=== PATIENT | female | born 1935 | race Caucasian/White ===

== ENCOUNTER 2018-06-26 06:03 | Inpatient (IN) | payer BC ==
[2018-06-15 09:18] LABS: ABSOLUTE EOSINOPHILS 0.1 thou/uL (0.0-0.7); ABSOLUTE LYMPHOCYTES 0.8 thou/uL (0.8-5.3); ABSOLUTE MONOCYTES 0.3 thou/uL (0.0-1.2); ABSOLUTE NEUTROPHILS 2.3 thou/uL (1.6-8.1); BASOPHILS 0.8 %; EOSINOPHILS 3.6 %; HEMATOCRIT 41.2 % (37.0-47.0); LYMPHOCYTES 22.6 %; MCH 32.2 pg (26.0-34.0); MCHC 33.9 g/dL (28.0-37.0); MCV 95.1 fL (80.0-100.0); MONOCYTES 8.6 %; MPV 9.2 fl. (7.2-11.1); NUCLEATED RBCS 0 /100WBC; PLATELET COUNT* 101 thou/uL (150-400); POLYS 64.4 %; RBC 4.34 mil/uL (4.20-5.00); WBC 3.6 thou/uL (4.0-11.0)
[2018-06-15 09:24] LABS: APTT 28.7 Seconds (25.0-31.3); INR 1.1
[2018-06-15 10:11] LABS: ALBUMIN 3.5 g/dL (3.4-5.0); CALCIUM 9.3 mg/dL (8.5-10.1); CREATININE 0.9 mg/dL (0.6-1.3); POTASSIUM 3.9 mmol/L (3.5-5.1); TOTAL BILIRUBIN 0.6 mg/dL (<0.1-1.0); TOTAL PROTEIN 6.7 g/dL (6.4-8.2)
[2018-06-15 11:14] LABS: ESR (SEDRATE) 14 mm/hr (0-30)
--- NOTE | 2018-06-15 16:41 | EKG ---
[place] [address] ELECTROCARDIOGRAM REPORT Name: ROMELIA CANTOR Room: [facility]#: [id number] Admission: Attend Phys: Ghazala Persaud Discharge: Date of : 37 Report #: [id number] THIS REPORT FOR: //name// [facility] Test Date: 2018-06-15 Test Time: 09:34:17 Pat Name: ROMELIA CANTOR Department: Room: Gender: F Color Dipper: : 1935 Requested By: Johnathan Corcoran Order Number: [id number] MD: Owen Rutherford Measurements Intervals [place] Rate: 66 P: 39 NE: 184 QRS: 66 QRSD: 94 T: 24 QT: 409 QTc: 429 Interpretive Statements Sinus rhythm Low voltage, precordial leads No previous ECG available for comparison Electronically Signed On 06-15-2018 16:41:[address] ADMINISTRATOR by Owen Rutherford [email or web address] <ELECTRONICALLY SIGNED> By: Owen Rutherford MD, [facility] 06/15/18 1641 0934 0934 Owen Rutherford MD, FACC /EPI
[2018-06-15 21:13] LABS: GLYCOHEMOGLOBIN (HGB A1C) 6.2 % (4.8-5.6)
[~2018-06-26] VITALS: Ht 147.3 cm; Wt 79.9 kg
[~2018-06-26 06:03] MED LIST: ADULT LOW DOSE81 MG PO; ALLOPURINOL 10100 M1 PO; AMILORIDE HCL-1 EACH PO; ASPIR-TRIN325 MG PO; CARVEDILOL12.5 MG PO; CELEXA20 MG PO; CENTRUM SILVER1 EAC4 PO; COLACE100 MG PO; HYDROCODONE-AP1 EAC6 PO; LEVOTHYROXINE0.05 MG PO; MILK OF MA400 MG/5 M PO; OMEGA-31000 M1 PO; OMEPRAZOLE20 M2 PO; OXYCODONE HCL 55 MG PO; POTASSIUM20 PO; TRAMADOL 50 MG50 MG PO; TRAZODONE HCL50 MG PO; VITAMIN D1000 UNI1 PO; XARELTO10 MG PO; ZYRTEC10 M2 PO
[2018-06-26] MEDS ORDERED: FLAGYL 250 MG250 MG PO (06:20)
[2018-06-26 06:51] VITALS: BP 123/61
[2018-06-26 11:08] VITALS: BP 124/62
--- NOTE | 2018-06-26 11:30 | NUR ---
PATIENT TRANSFERRED FROM PACU TO ROOM 111. ALERT AND ORIENTED. OXYIR FOR PAIN. LUNCH PROVIDED. TOELRATING LIQUIDS. DRESSING TO RIGHT KNEE C/D/I. TEDS AND SCD'S IN PLACE. POLAR CARE IN USE. IVF INFUSING ORDERED. CAPNO WITH SAT 99% ON RA. ORIENTED TO ROOM AND BED CONTROLS. DAUGHTER AT BEDSIDE. BED ALARM SET. CALL LIGHT WITHIN REACH. WILL CONTINUE TO MONITOR.
[2018-06-26 16:00] VITALS: BP 101/47
--- NOTE | 2018-06-26 16:26 | NUR ---
PATIENT REMAINS ALERT AND ORIENTED. PAIN CONTROLLED WITH OXYIR. UP TO COMMODE WITH ASSIST OF 1,GAITBELT, AND WALKER. VOIDED PER BSC. CURRENTLY UP IN CHAIR WORKING WITH PT. DRESSING TO KNEE C/D/I. CPM TO START TONIGHT. SCD'S AND TEDS IN PLACE. RA SAT 99%. CAPNO. IVF INFUSING ORDERED. DAUGHTER AT BEDSIDE. CALL LIGHT WITHIN REACH. WILL CONTINUE TO MONITOR.
[2018-06-26 19:15] VITALS: BP 139/66
--- NOTE | 2018-06-26 23:36 | NUR ---
RECIEVED REPORT AND ASSUMED CARE OF PT AT 1915. PT UP IN RECLEINER AT THAT TIME.PT IN STEPHANY HOSE,SCD'S AND POLAR PACK TO RIGHT KNEE. PT ABLE TO USE BEDSIDE COMMODE WITH WALKER AND ASSIST X1. PT GIVEN PRN PAIN MEDS AT HS. PT PLACED IN CPM MACHINE PER ORDERS. CALL LIGHT IN REACH. PT USING APPROPRIATELY.
[2018-06-27 00:53] VITALS: BP 152/73
[2018-06-27 04:18] VITALS: BP 149/91
[2018-06-27 05:04] LABS: HEMATOCRIT 36.9 % (37.0-47.0); HEMOGLOBIN 12.4 gm/dL (12.0-15.0); MCH 31.8 pg (26.0-34.0); MCHC 33.5 g/dL (28.0-37.0); MCV 94.9 fL (80.0-100.0); NUCLEATED RBCS 0 /100WBC; PLATELET COUNT* 85 thou/uL (150-400); RBC 3.89 mil/uL (4.20-5.00); RDW-CV 15.3 % (10.5-14.5); WBC 6.5 thou/uL (4.0-11.0)
[2018-06-27 05:42] LABS: ALBUMIN 3.2 g/dL (3.4-5.0); CALCIUM 9.1 mg/dL (8.5-10.1); CREATININE 1.1 mg/dL (0.6-1.3); POTASSIUM 3.9 mmol/L (3.5-5.1); TOTAL BILIRUBIN 0.5 mg/dL (<0.1-1.0); TOTAL PROTEIN 6.3 g/dL (6.4-8.2)
[2018-06-27 06:04] LABS: ABSOLUTE LYMPHOCYTES 0.2 thou/uL (0.8-5.3); ABSOLUTE MONOCYTES 0.1 thou/uL (0.0-1.2); ABSOLUTE NEUTROPHILS 6.2 thou/uL (1.6-8.1); PLATELET ESTIMATE DECREASED
--- NOTE | 2018-06-27 06:09 | NUR ---
PT PROGRESSING TOWARD GOALS DURING SHIFT. PT UP TO BEDSIDE COMMODE WITH ASSIST X1. PT ON CPM LAST NIGHT ORDERED. POLAR CARE, STEPHANY HOSE AND FOOT PUMPS IN PLACE. VITAL SIGNS WITHIN NORMAL LIMITS. NO ACUTE CHANGES DURING SHIFT. WILL CONTINUE PLAN OF CARE.
[2018-06-27 08:00] VITALS: BP 136/76
[2018-06-27 15:45] VITALS: BP 117/60
--- NOTE | 2018-06-27 16:09 | NUR ---
PATIENT REMAINS ALERT AND ORIENTED. PAIN CONTROLLED. DRESSING TO RIGHT KNEE C/D/I. POLAR CARE IN PLACE. WORKED WITH PT/OT. TOLERATING MEALS. USED CPM X2 THIS SHIFT. TEDS/SCD'S IN PLACE. TOLERATING MEALS. VOIDING PER BSC. BM LAST NIGHT. AMBULATES AND TRANSFERS WITH ASSIST OF 1,GB, AND WALKER. BED/CHAIR ALARM IN USE. DAUGHTER AT BEDSIDE. CALL LIGHT WITHIN REACH. WILL CONTINUE TO MONITOR.
[2018-06-27 21:00] VITALS: BP 140/64
--- NOTE | 2018-06-27 23:01 | NUR ---
INITAL ASSESMENT COMPLETED AT 2100. PT TAKEN OFF CPM AT THAT TIME. PT ABLE TO TRANSFER FROM BED TO COMMODE WITH ASSIST X1. PT GIVEN PRN NORCO WITH HS MEDS. PT RESTING QUIETLY, CALL LIGHT IN REACH.
[2018-06-28 04:23] LABS: HEMATOCRIT 33.9 % (37.0-47.0); HEMOGLOBIN 11.4 gm/dL (12.0-15.0)
[2018-06-28 08:00] VITALS: BP 132/64
[2018-06-28] MEDS ORDERED: ELIQUIS2.5 MG PO (09:50)
[2018-06-28] MEDS ORDERED: OXYCODONE HCL 55 MG PO (09:50)
[2018-06-28 09:51] VITALS: BP 132/64
[2018-06-28] MEDS ORDERED: ASPIRIN325 PO (10:00)
[2018-06-28] MEDS ORDERED: VENTOLIN HFA 1818 GM INH (11:57)
[2018-06-28] MEDS ORDERED: SENNA PLUS TAB1 EACH PO (11:58)
[2018-06-28] MEDS ORDERED: PREDNISONE 20 M20 MG PO (11:58)
[2018-06-28] MEDS ORDERED: IPRAT-ALBUT 0.5-3 ML INH (11:59)
--- NOTE | 2018-06-28 12:37 | NUR ---
PURCHASING OFFICER SPOKE TO HUMBLE WITH [employer] TO DISUCSS INSURANCE AUTH FOR THE PATIENT. HUMBLE INFORMS THAT SHE HAS NOT RECEIVED INSURANCE AUTH YET, BUT WILL RETURN CALL WHEN AUTH IS RECEIVED. CM WILL REMAIN AVIALABLE TO ASSIST AND FOLLOW NEEDED.
--- NOTE | 2018-06-28 16:10 | NUR ---
PATIENT REMAINS ALERT AND ORIENTED. IV SALINE LOCKED. PARTICIPATING WITH PT/OT. DRESSING TO RIGHT KNEE C/D/I. TEDS/SCDS IN PLACE. CPM USED X2 THIS SHIFT. BM THIS MORNING. VOIDING WELL PER COMMODE. VSS. RA SAT 98%. DAUGHTER WENT BACK TO [place]. PATIENT WILL TRANSFER TO [facility] ONCE INSURANCE AUTH IS RECEIVED. BED/CHAIR ALARM IN USE. CALL LIGHT WITHIN REACH. WILL CONTINUE TO MONITOR.
[2018-06-28 20:00] VITALS: BP 131/62
[2018-06-29 00:28] VITALS: BP 142/77
[2018-06-29 04:18] VITALS: BP 124/63
--- NOTE | 2018-06-29 04:55 | NUR ---
ASSUMED CARE OF PT AT 1900 PT ALERT AND ORIENTED X4 VS AND ASSESSMENT STABLE.PT HAD POSITIVE CMS CHECKS TO RLE. PT DENYING PAIN AND DECLINING PAIN MEDS. PT SLEPT THROUGH THE NIGHT PT DID TAKE PAIN MEDS ONCE. WILL CONTINUE PLAN OF CARE.
[2018-06-29 08:00] VITALS: BP 125/59
[2018-06-29 10:36] VITALS: BP 132/64
--- NOTE | 2018-06-29 11:02 | NUR ---
RAT BREEDER SPOKE HUMBLE WITH [facility] AND SHE INFORMS THAT THE FACILTY HAS RECIEVED INSURANCE AUTH FOR SKILLED, AND WILL PROVIDE TRANSPORT FOR THE PATIENT TODAY BETWEEN 1400 AND 1430. D/C MAGISTERIAL DISTRICT JUDGE INFORMED THE PATIENT OF THIS INFO AND SHE IS IN AGREEMENT. D/C MAGISTERIAL DISTRICT JUDGE CONTACTED THE PATIENT'S DTR PER HER REQUEST, AND LEFT A MESSAGE TO RETURN CALL. D/C MAGISTERIAL DISTRICT JUDGE INFORMED THE RN IN-CHARGE OF THE PATIENT OF THE PATIENT'S TIME OF TRANSPORT, AND WHERE TO CALL REPORT. RN IN AGREEMENT. CM WILL REMAIN AVAILABLE TO ASSIST AND FOLLOW NEEDED.
[2018-06-29] MEDS ORDERED: OXYCODONE HCL 55 MG PO (12:20)
[2018-06-29 14:23] VITALS: BP 132/64
--- NOTE | 2018-06-29 14:24 | NUR ---
PT CHART COPIED. PRESCRIPTIONS PLACE IN ENVELOPE. ENVELOPE GIVEN TO TRANSPORTER. PT IV REMOVED AND BELONGINGS GATHERED. PT LEFT VIA WHEELCHAIR WITH NURSING STAFF TO WHEELCHAIR VAN TO [facility]. FALL RISK PRECAUTIONS IN PLACE. HOURLY ROUNDING COMPLETED. WILL CONTINUE TO MONITOR.
--- NOTE | 2018-07-03 09:17 | OP ---
[address] [address] OPERATIVE REPORT Name: ROMELIA CANTOR Room: [address]#: [id number] Admission: 06/26/18 Attend Phys: Ghazala Persaud Discharge: 06/29/18 Date of : 37 Report #: [id number] THIS REPORT FOR: //name// CC: Johnathan Castellanos DATE OF SERVICE: 06/26/2018 PREOPERATIVE DIAGNOSIS: Advanced degenerative joint disease, right knee. POSTOPERATIVE DIAGNOSIS: Advanced degenerative joint disease, right knee. PROCEDURE: Right total knee arthroplasty. SURGEON: Johnathan Corcoran DO. APARTMENT LEASING SPECIALIST: Kayden Landaverde DO. SECOND FISH EGG PACKER: Miguel Ángel Smith DO. ESTIMATED BLOOD LOSS: 100 mL. ORTHOPEDIC IMPLANTS:. Messi total knee arthroplasty system. 1. Size 4 cruciate retaining femur. 2. Size C tibial baseplate. 3. A 12 mm medial congruent polyethylene spacer. 4. A 29 mm 3 peg patella. 5. 2 bags of Biomet bone cement plain. ANESTHESIA: General. COMPLICATIONS: None. DRAINS: None. SPECIMEN REMOVED: None. CONDITION OF PATIENT: Stable to PACU. INDICATIONS FOR PROCEDURE: The patient is a pleasant 83-year-old female, seen in my clinic regarding right knee pain she has had for quite some time. She unfortunately failed conservative treatment including anti-inflammatory medications, steroid injections and activity modification. X-rays were consistent with end-stage degenerative joint disease. Due to failed conservative treatment, I did discuss the potential benefit of right total knee [address] [address] OPERATIVE REPORT Name: ROMELIA CANTOR Room: [address] [place] M.R.#: [id number] Admission: 06/26/18 Attend Phys: Ghazala Persaud Discharge: 06/29/18 Date of : 37 Report #: [id number] arthroplasty. I discussed procedure, risks, benefits, complications, indications in detail with her. Risks discussed include but not limited to infection, neurovascular injury, continued or worsened pain, need for further surgery, DVT, PE, hardware failure, fracture and anesthesia complications. She did express understanding and wished to proceed with surgery. DESCRIPTION OF PROCEDURE: After consent was obtained, the patient was taken to operative suite and placed in supine position on operating room table. She was given benefit of general anesthesia. A well-padded tourniquet was placed over the right upper thigh. Right leg was sterilely prepped and draped in usual fashion. Preoperative timeout was obtained to confirm the correct patient, procedure and operative site. Surgery began with elevation of the tourniquet to 300 mmHg. This was inflated for approximately one hour throughout the procedure. A standard anterior knee midline incision was made. Sharp dissection was taken down to the level of the capsule. A new knife was used and a medial parapatellar arthrotomy was performed. She had a normal appearing joint effusion. Upon entering the knee joint, she had severely eburnated bone throughout all 3 compartments with osteophytes throughout. At this time, femoral drill was used to open the femoral canal. T-handle and extramedullary enedina were placed measuring 5-degree valgus cut. The distal femoral cut was made through the captured block. Attention was then turned to the proximal tibia. External tibial guide was utilized, measuring 10 mm cut off the high lateral side. Proximal tibial cut was made through the captured block. The knee was taken through extension and 10 block was used to ensure adequate resection. The knee was again flexed. AP sizer was placed on the distal femur and this measured a size 4. Two river pilot holes were drilled in 3 degrees of external rotation. The size 4, 4-in-1 cutting block was then pinned in place and the anterior, posterior condylar cuts were made as well as the chamfer cuts. Posterior osteophytes were removed with curved osteotome and rongeur. Proximal tibia was then exposed, this measured a size C. The size C tibial trial was pinned in place with appropriate rotation based off the medial third of the tibial tubercle. The trial femur was placed. The size 10 spacer was placed. Knee was taken through range of motion. She had full flexion/extension with stable varus valgus testing throughout. The patella was then everted. Posterior patellar cut was made using freehand technique. This measured size 29. Three peg holes were drilled, size 29 button was placed. Knee was taken through range of motion. The patella did track well. At this time, the trial femur and spacer were removed. The proximal tibia was opened with a drill and punch. All trial components were then removed. The knee was thoroughly irrigated with pulsatile lavage and dried with a clean lap sponge. Cement was mixed, placed on the final components and an exposed bone. The components were then impacted into place. Excess cement was removed. A size 12 spacer was placed. Knee was taken through extension. Axial compression was applied until the cement hardened. Once the cement hardened, trial reduction [address] [address] OPERATIVE REPORT Name: ROMELIA CANTOR Room: [address] [place] [facility]#: [id number] Admission: 06/26/18 Attend Phys: Palomo MigdaliaGhazala Hayes Discharge: 06/29/18 Date of : 37 Report #: [id number] was performed and a final size 12 spacer was chosen. This was placed on a clean tray and locked in place. Audible click was heard. The knee was again taken through final range of motion. She had full flexion/extension with stable varus and valgus testing and equal flexion and extension gaps and good patellar tracking throughout. Tourniquet was allowed to deflate. Hemostasis was achieved with electrocautery and direct pressure. Ortho cocktail was injected. Capsular tissue was closed with a running Quill suture. Subcutaneous tissue was thoroughly irrigated and then closed with 2-0 Vicryl in inverted interrupted fashion followed by running Monocryl stitch. This covered with Dermabond, which was allowed to dry, Mepilex silver dressing and a pressure dressing. She did tolerate the procedure well without complication. She was taken to recovery room in stable condition. All needle and sponge counts were correct x 2 at the end of the procedure. <ELECTRONICALLY SIGNED> By: Johnathan Corcoran DO 07/03/18 0917 0804 [id number] Corcoran DO /nt
== END 2018-06-29 14:25 | DRG 470 ==
LOC: M.SUR 06:03 → M.ORTHSURG 09:38 → M.SUR 09:48 → M.ORTHSURG 06-29 14:25
PROVIDERS: Family Medicine; Orthopaedic Surgery; ADMIT Internal Medicine
PROC: 0SRC0J9 Replacement of Right Knee Joint with Synthetic Substitute, Cemented, Open Approach (ICD-10-PCS; principal; 2018-06-26)
DX: M17.11 Unilateral primary osteoarthritis, right knee (principal); J45.21 Mild intermittent asthma with (acute) exacerbation; E03.9 Hypothyroidism, unspecified; K21.9 Gastro-esophageal reflux disease without esophagitis; F32.9 Major depressive disorder, single episode, unspecified; I12.9 Hypertensive chronic kidney disease with stage 1 through stage 4 chronic kidney disease, or unspecified chronic kidney disease; M10.9 Gout, unspecified; N18.3 Chronic kidney disease, stage 3 (moderate); N76.0 Acute vaginitis; Z88.1 Allergy status to other antibiotic agents; Z88.8 Allergy status to other drugs, medicaments and biological substances; Z90.49 Acquired absence of other specified parts of digestive tract; Z98.42 Cataract extraction status, left eye; Z98.41 Cataract extraction status, right eye

== ENCOUNTER 2018-08-02 12:59 | Emergency (ER) | payer BC ==
[~2018-08-02] VITALS: Ht 149.9 cm; Wt 77.1 kg
[~2018-08-02 12:59] MED LIST changes: +ASPIRIN325 PO; +ELIQUIS2.5 MG PO; +FLAGYL 250 MG250 MG PO; +IPRAT-ALBUT 0.5-3 ML INH; +PREDNISONE 20 M20 MG PO; +SENNA PLUS TAB1 EACH PO; +VENTOLIN HFA 1818 GM INH
[2018-08-02 13:58] LABS: HEMATOCRIT 35.6 % (37.0-47.0); HEMOGLOBIN 11.8 gm/dL (12.0-15.0); MCH 31.3 pg (26.0-34.0); MCHC 33.2 g/dL (28.0-37.0); MCV 94.4 fL (80.0-100.0); NUCLEATED RBCS 0 /100WBC; PLATELET COUNT* 112 thou/uL (150-400); RBC 3.77 mil/uL (4.20-5.00); RDW-CV 15.8 % (10.5-14.5); WBC 5.5 thou/uL (4.0-11.0)
[2018-08-02 14:23] LABS: ALBUMIN 3.1 g/dL (3.4-5.0); CREATININE 1.3 mg/dL (0.6-1.3); POTASSIUM 4.4 mmol/L (3.5-5.1); TOTAL BILIRUBIN 0.9 mg/dL (<0.1-1.0); TOTAL PROTEIN 5.8 g/dL (6.4-8.2)
[2018-08-02 15:15] LABS: ABSOLUTE BASOPHILS 0.1 thou/uL (0.0-0.2); ABSOLUTE LYMPHOCYTES 0.3 thou/uL (0.8-5.3); ABSOLUTE MONOCYTES 0.4 thou/uL (0.0-1.2); ABSOLUTE NEUTROPHILS 4.7 thou/uL (1.6-8.1); ATYPICAL LYMPHS 2 %
[2018-08-02 15:16] LABS: PLATELET ESTIMATE DECREASED
[2018-08-02 15:18] LABS: ANISOCYTOSIS 2+; MACROCYTES 2+; POIKILOCYTOSIS 1+
[2018-08-02 15:19] LABS: POLYCHROMASIA Occasional
[2018-08-02 15:56] LABS: URINE BILIRUBIN NEGATIVE (Negative); URINE BLOOD NEGATIVE (Negative); URINE CLARITY CLEAR; URINE COLOR DARK YELLOW; URINE GLUCOSE-RANDOM NEGATIVE (Negative); URINE KETONES NEGATIVE (Negative); URINE LEUKOCYTES-REFLEX NEGATIVE (Negative); URINE NITRITE-REFLEX NEGATIVE (Negative); URINE PROTEIN NEGATIVE (Negative); URINE SPECIFIC GRAVITY 1.015 (1.005-1.030); URINE UROBILINOGEN 0.2 E.U./dl (0.2-1.0)
--- NOTE | 2018-08-02 16:46 | EKG ---
[place] [address] ELECTROCARDIOGRAM REPORT Name: IAM CANTOREN Duncan Room: [facility]#: [id number] Admission: 08/02/18 Attend Phys: Discharge: Date of : 37 Report #: [id number] THIS REPORT FOR: //name// [facility] Test Date: 2018-08-02 Test Time: 13:13:26 Pat Name: ROMELIA CANTOR Department: Room: Gender: F Automatic Spinning Lathe Operator: ANNALISA : 1935 Requested By: Karen Ramirez Order Number: [id number] MD: Johnathan Olivo Measurements Intervals [place] Rate: 75 P: 55 [place]: 177 QRS: 44 QRSD: 84 T: 25 QT: 356 QTc: 398 Interpretive Statements Sinus rhythm Low voltage, precordial leads Compared to ECG 06/15/2018 09:34:17 no change Electronically Signed On 08-02-2018 16:46:38 MORTGAGE CLERK by Johnathan Olivo [email or web address] <ELECTRONICALLY SIGNED> By: Johnathan Olivo MD, [facility] 08/02/18 1646 1313 Johnathan Olivo MD, FACC /EPI
[2018-08-02] MEDS ORDERED: KEFLEX500 M1 PO (17:23)
[2018-08-02 17:35] VITALS: BP 127/57
== END 2018-08-02 17:36 | disposition home or self-care (01) ==
LOC: M.ERS 12:59
PROVIDERS: Physician Assistant
DX: R50.9 Fever, unspecified (principal); E03.9 Hypothyroidism, unspecified; I10 Essential (primary) hypertension; K21.9 Gastro-esophageal reflux disease without esophagitis; F32.9 Major depressive disorder, single episode, unspecified; M10.9 Gout, unspecified; M48.00 Spinal stenosis, site unspecified; Z88.8 Allergy status to other drugs, medicaments and biological substances; Z90.49 Acquired absence of other specified parts of digestive tract